=== PATIENT | male | born 1965 | race Two or more races ===

== ENCOUNTER 2025-06-05 10:00 | Outpatient (AMB) | payer MEDICAID, SELFPAY ==
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
[2025-06-05 10:12] VITALS: BP 156/91; PULSE 66; RESP 18; TEMP 36.4; O2SAT 95; BMI 30.4
== END 2025-06-05 10:55 | disposition home or self-care (01) ==
LOC: HODSRG 10:00
PROVIDERS: PCP Physician Assistant; Referring Provider Physician Assistant; Supervising Provider Surgery; Visit Provider Surgery
DX: K80.20 Calculus of gallbladder without cholecystitis without obstruction (principal)
CPT/HCPCS: 99203; G0463